=== PATIENT | female | born 1990 | race African-American/Black ===

== ENCOUNTER 2022-01-29 09:37 | Outpatient (CLI) | payer OTHER | END 2022-01-29 09:38 | disposition home or self-care (01) | LOC: CSHULT 09:37 | PROVIDERS: ATTEND Otolaryngology Plastic Surgery within the Head & Neck | DX: E04.9 Nontoxic goiter, unspecified (principal); E04.2 Nontoxic multinodular goiter | CPT/HCPCS: 76536 ==